=== PATIENT | male | born 1975 | race African-American/Black ===

== ENCOUNTER 2023-02-02 15:21 | Emergency (ER) | payer SELFPAY ==
[~2023-02-02] VITALS: Ht 188 cm; Wt 59.0 kg
[2023-02-02 15:30] VITALS: TEMP 98.5; O2SAT 100
[2023-02-02] MEDS ORDERED: KETOROLAC 30MG/ML VIAL IM ONE (15:45)
[2023-02-02] MEDS ORDERED: NAPR-1176 MT (16:55)
[2023-02-02 17:45] VITALS: BP 118/81; PULSE 85; RESP 16
[2023-02-02] MEDS ORDERED: KETOROLAC 30MG/ML VIAL IM NR (17:45)
== END 2023-02-02 17:51 | disposition home or self-care (01) ==
LOC: ER 15:21
DX: S20.211A Contusion of right front wall of thorax, initial encounter (principal); M94.0 Chondrocostal junction syndrome [Tietze]; W10.8XXA Fall (on) (from) other stairs and steps, initial encounter; Y93.89 Activity, other specified; Y92.89 Other specified places as the place of occurrence of the external cause; Y99.8 Other external cause status
CPT/HCPCS: 99284; 71101; 96372; J1885